=== PATIENT | female | born 1985 | race Caucasian/White ===

== ENCOUNTER 2025-04-30 15:46 | Outpatient (REF) | payer MEDICARE, SELFPAY ==
[2025-04-30 16:24] LABS: WBC Negative HPF (0-5)
== END 2025-04-30 15:47 | disposition home or self-care (01) ==
LOC: LBN 15:46
PROVIDERS: Visit Provider Physician Assistant Medical
DX: R30.0 Dysuria (principal); R82.89 Other abnormal findings on cytological and histological examination of urine
CPT/HCPCS: 81015; 87086; 87480; 87510; 87660